=== PATIENT | female | born 1945 | race Caucasian/White ===

== ENCOUNTER 2022-01-24 14:50 | Inpatient (IN) | payer MEDICARE, OTHER ==
[~2022-01-24] VITALS: Ht 160 cm; Wt 46.3 kg
[~2022-01-24 14:50] MED LIST: AMOXICILLIN 8751 TAB PO; ASPIRIN 81M81 MG/TA2 PO; AVELOX 400MG T400 MG PO; BACTRIM DS 8001 TAB PO; LIDO3%CREAM TP; LIDOCAINE HC20 MG/M2 TOP; NICODERM C21 MG/PATC TD; PLAVIX 75MG TAB75 MG PO; PROVENTIL0.09 MG/A1 IH; ULTRAM 50MG TAB50 MG PO
[2022-01-24 15:30] VITALS: BP 122/60; PULSE 85; TEMP 97.7
[2022-01-24 16:35] LABS: BASO # 0.1 K/mm3 (0.0-0.2); BASO % 0.6 % (0.0-2.0); EOS # 0.3 K/mm3 (0.0-0.7); GRAN # 8.1 K/mm3 (1.4-6.5); LYMPH # 1.5 K/mm3 (1.2-3.4); MEAN CELL VOLUME 85 fl (80.0-100.0); MEAN CORPUSCULAR HGB CONC 31 g/dl (33.0-37.0); MEAN PLATELET VOLUME 8.2 fl (7.4-10.4); MONO # 0.9 K/mm3 (0.1-0.6); MONO % 7.9 % (1.7-9.3); PLATELET COUNT 612 K/mm3 (130-400); RED BLOOD COUNT 3.42 M/mm3 (4.10-5.30); REDCELL DISTRIBUTION WIDTH-CV 14.9 % (11.5-14.5)
[2022-01-24 16:47] LABS: ALBUMIN 2.9 gm/dL (3.4-4.8); BILIRUBIN,TOTAL 0.3 mg/dL (0.2-1.2); CREATININE, serum 0.89 mg/dL (0.57-1.11); POTASSIUM 4.8 mmol/L (3.5-4.5); TOTAL PROTEIN 7.1 gm/dL (6.2-8.1)
[2022-01-24 16:55] LABS: HEMATOCRIT 29.1 % (37.0-47.0); HEMOGLOBIN 9.1 g/dl (12.5-16.0); MEAN CORPUSCULAR HEMOGLOBIN 27 pg (27-31)
[2022-01-24 20:47] VITALS: BP 130/55; PULSE 95; TEMP 97.6
[2022-01-25 00:13] VITALS: BP 142/55; PULSE 90; TEMP 97.3
[2022-01-25 04:16] VITALS: BP 128/52; PULSE 103; TEMP 98.1
[2022-01-25 06:24] LABS: BASO # 0.1 K/mm3 (0.0-0.2); BASO % 0.7 % (0.0-2.0); EOS # 0.3 K/mm3 (0.0-0.7); EOS % 2.8 % (0.0-4.0); GRAN # 6.8 K/mm3 (1.4-6.5); GRAN % 75.4 % (42.2-75.2); LYMPH # 1.1 K/mm3 (1.2-3.4); LYMPH % 12.2 % (20.0-51.0); MEAN CELL VOLUME 86 fl (80.0-100.0); MEAN CORPUSCULAR HGB CONC 31 g/dl (33.0-37.0); MEAN PLATELET VOLUME 8.4 fl (7.4-10.4); MONO # 0.8 K/mm3 (0.1-0.6); MONO % 8.6 % (1.7-9.3); RED BLOOD COUNT 3.32 M/mm3 (4.10-5.30); REDCELL DISTRIBUTION WIDTH-CV 14.8 % (11.5-14.5)
--- NOTE | 2022-01-25 06:25 | NUR ---
dressing to rt leg changed per pt request x1 this shift, site with yellow-green, foul smelling drainage, green mesh stuck inside incision left in place, covered area with wet to dry dressings and rudy wrap, po norco controlling pain, up with assist of 2 to bsc. no IV access, PICC ordered for this am.
[2022-01-25 06:35] LABS: CALCIUM 8.9 mg/dL (8.4-10.2); CREATININE, serum 0.69 mg/dL (0.57-1.11)
[2022-01-25 06:54] LABS: HEMATOCRIT 28.4 % (37.0-47.0); HEMOGLOBIN 8.7 g/dl (12.5-16.0); MEAN CORPUSCULAR HEMOGLOBIN 26 pg (27-31)
[2022-01-25 06:55] LABS: PLATELET COUNT 500 K/mm3 (130-400)
[2022-01-25 08:18] VITALS: BP 157/76; PULSE 72; TEMP 98
--- NOTE | 2022-01-25 10:31 | NUR ---
Initial visit; Nurse asked if I was going in to see Lyly, that she was experiencing sadness, anxiety and depression regarding her upcoming surgical procedure. Aircraft Refueller found Lyly near tears but receptive to prayer. Aircraft Refueller offered comfort and prayer inviting patient to talk. Lyly said she didn't want to talk but was receptive to prayer and being placed on Aircraft Refueller's prayer list. Aircraft Refueller will follow up.
--- NOTE | 2022-01-25 10:55 | NUR ---
The patient recently discharged from the hospital on 12/31. The plan was to go to [facility] for SNF, but the patient's family took her to [facility] instead. The patient has been at [facility] since then. KAR contacted the patient's daughter, Ade (ph#[phone]), to discuss discharge plan. The patient is to have an above the knee amputation tomorrow. Ade states that the plan is for the patient to return back to [facility] upon discharge and family will transport. The patient's PCP is Dr. Aamir Marino. The patient does not have a DPOA-HC in EMR, but Ade states she believes the patient has one completed. The patient's is Issac (ph#[phone]). KAR contacted and faxed updates to Jenni at [facility]. Jenni confirms that they plan on taking the patient back upon discharge. *Discharge plan: [facility]* [facility]: #[phone], fax#[phone]
[2022-01-25 12:09] VITALS: BP 129/59; PULSE 100; TEMP 97.7
--- NOTE | 2022-01-25 12:44 | NUR ---
PATIENT ALERT AND ORIENTED X4. VSS. PATIENT HERE FOR DEHISENCE OF RIGHT BKA. PATIENT AFFECT IS FLAT. PICC PLACEMENT TODAY TO RIGHT UPPER ARM. PATIENT REPORTS PAIN 01/26, REQUESTS PAIN MEDICATION. CONSENT OBTAINED FOR RIGHT AKA ON 01/26. PATIENT RESTING IN BED WITH CALL LIGHT NEAR.
[2022-01-25 14:55] LABS: COLLECTION METHOD CLEAN CATCH; MUCOUS Present (NOT PRESENT); PH 6 (5-8); SQUAMOUS EPITHELIAL 0-2 /hpf (0-10); URINE APPEARANCE Clear (CLEAR/HAZY); URINE BACTERIA None Seen /hpf (NONE SEEN); URINE BLOOD Negative (NEGATIVE); URINE COLOR Yellow (YELLOW); URINE GLUCOSE Negative (NEGATIVE); URINE KETONE Negative (NEGATIVE); URINE NITRATE Negative (NEGATIVE); URINE PROTEIN(semi-quant) 1+ (NEGATIVE); URINE RBC 0-2 /hpf (0-2); URINE UROBILINOGEN Negative (NEGATIVE)
[2022-01-25 16:02] VITALS: BP 96/74; PULSE 101; TEMP 98.5
[2022-01-25 20:34] VITALS: BP 126/52; PULSE 94; TEMP 98.2
[2022-01-26] VITALS (14 sets, daily range): BP systolic 92–138; BP diastolic 34–53; PULSE 88–110; TEMP 97.6–98.2
--- NOTE | 2022-01-26 05:53 | NUR ---
pt had some episodes of confusion this shift, kept asking if her was here, even after she was told several times he had left for the day, pt up to bsc with assist of 2, pain controlled with tylenol and norco, dressing intact to rt leg stump, did not want changed tonight, npo since midnight for surgery today. back and forth from bed to chair with assist of 2.
[2022-01-26 06:25] LABS: BASO % 0.4 % (0.0-2.0); EOS # 0.1 K/mm3 (0.0-0.7); EOS % 0.9 % (0.0-4.0); GRAN # 8.2 K/mm3 (1.4-6.5); LYMPH % 10.3 % (20.0-51.0); MEAN CELL VOLUME 84 fl (80.0-100.0); MEAN CORPUSCULAR HGB CONC 32 g/dl (33.0-37.0); MEAN PLATELET VOLUME 8.3 fl (7.4-10.4); MONO # 0.6 K/mm3 (0.1-0.6); MONO % 5.9 % (1.7-9.3); PLATELET COUNT 493 K/mm3 (130-400); RED BLOOD COUNT 3.23 M/mm3 (4.10-5.30); REDCELL DISTRIBUTION WIDTH-CV 14.6 % (11.5-14.5)
[2022-01-26 06:32] LABS: HEMOGLOBIN 8.5 g/dl (12.5-16.0); MEAN CORPUSCULAR HEMOGLOBIN 26 pg (27-31)
[2022-01-26 06:39] LABS: CALCIUM 8.8 mg/dL (8.4-10.2); CREATININE, serum 0.67 mg/dL (0.57-1.11); POTASSIUM 4.8 mmol/L (3.5-4.5)
--- NOTE | 2022-01-26 13:32 | NUR ---
PATIENT OFF OF FLOOR FOR SURGERY
--- NOTE | 2022-01-26 15:54 | NUR ---
The patient had surgery today for the AKA. KAR faxed updates to [facility].
[2022-01-27 04:05] VITALS: BP 87/40; PULSE 97; TEMP 98.2
[2022-01-27 06:40] LABS: CALCIUM 8.4 mg/dL (8.4-10.2); CREATININE, serum 0.72 mg/dL (0.57-1.11)
[2022-01-27 07:11] LABS: MEAN CELL VOLUME 83 fl (80.0-100.0); MEAN CORPUSCULAR HGB CONC 32 g/dl (33.0-37.0); MEAN PLATELET VOLUME 8.3 fl (7.4-10.4); PLATELET COUNT 463 K/mm3 (130-400); RED BLOOD COUNT 2.88 M/mm3 (4.10-5.30); REDCELL DISTRIBUTION WIDTH-CV 14.8 % (11.5-14.5)
[2022-01-27 07:12] LABS: HEMOGLOBIN 7.7 g/dl (12.5-16.0); MEAN CORPUSCULAR HEMOGLOBIN 27 pg (27-31)
[2022-01-27 07:28] LABS: LYMPHOCYTE 5 % (20.0-51.0); NEUTROPHILS 95 % (42.0-75.2); OVALOCYTES 1+; PLATELET ESTIMATE INCREASED (NORMAL)
[2022-01-27 07:29] LABS: ANISOCYTOSIS 1+; HYPOCHROMIA 1+
[2022-01-27 07:45] VITALS: BP 131/42; PULSE 82; TEMP 98.1
--- NOTE | 2022-01-27 08:00 | NUR ---
Patient sitting up in the recliner, family at the bedside. A&Ox4. VSS. IV CDI, fluids infusing. Denies pain and discomfort. LF incision site CDI. Call light within reach. Chair alarm on
[2022-01-27 11:16] VITALS: BP 94/76; PULSE 93; TEMP 98.1
--- NOTE | 2022-01-27 13:19 | NUR ---
Latoya: unknown Situation: Sales Branch Manager stopped by room on rounds Background: Pt was content and watching tv Assessment: Pt appreciated visit Recommendation: Sales Branch Manager will follow up as needed
--- NOTE | 2022-01-27 14:41 | NUR ---
Tentative discharge tomorrow, 01/28. KAR notified and faxed updates to Jenni at [facility]. Jenni confirms that they are able to accept the patient back tomorrow. KAR met with the patient and her to update. They are in agreement to the plan and confirm they will transport the patient back to [facility]. KAR presented and read the IM form outloud to the patient. The patient verbalized understanding and signed the form. KAR provided her with a copy.
[2022-01-27 16:08] VITALS: BP 108/32; PULSE 90; TEMP 98.3
--- NOTE | 2022-01-27 18:52 | NUR ---
Patient sitting up in bed, A&Ox4. VSS. IV CDI. Pain medication requested, reporting pain 11/26 RT leg. RT leg incision CDI. No further needs expressed. Call light within reach
--- NOTE | 2022-01-27 19:00 | NUR ---
RECEIVED CHANGE OF SHIFT REPORT FROM DAY SHIFT RN.
[2022-01-27 19:02] VITALS: BP 117/38; PULSE 88; TEMP 97.7
[2022-01-27 23:45] VITALS: BP 125/55; PULSE 86; TEMP 97.6
[2022-01-28 03:10] VITALS: BP 128/52; PULSE 80; TEMP 97.9
--- NOTE | 2022-01-28 04:10 | NUR ---
PATIENT REPORTS "I'M BLEEDING". OBSERVED MODERATE SIZE OPEN BLEEDING SHALLOW SKIN WOUND, NO SKIN FLAP OBSERVED. AREA CLEANED WITH BETADINE, COVERED WITH 4X4 TEGADERM DRESSING. NO REDNESS TO SKIN EDGES.
[2022-01-28 06:13] LABS: BASO % 0.2 % (0.0-2.0); EOS # 0.1 K/mm3 (0.0-0.7); EOS % 0.9 % (0.0-4.0); GRAN # 9.5 K/mm3 (1.4-6.5); GRAN % 79.9 % (42.2-75.2); LYMPH # 1.1 K/mm3 (1.2-3.4); LYMPH % 9.6 % (20.0-51.0); MEAN CELL VOLUME 83 fl (80.0-100.0); MEAN CORPUSCULAR HGB CONC 32 g/dl (33.0-37.0); MEAN PLATELET VOLUME 8.3 fl (7.4-10.4); MONO # 1.1 K/mm3 (0.1-0.6); PLATELET COUNT 508 K/mm3 (130-400); REDCELL DISTRIBUTION WIDTH-CV 14.7 % (11.5-14.5)
[2022-01-28 06:20] LABS: HEMATOCRIT 26.5 % (37.0-47.0); HEMOGLOBIN 8.4 g/dl (12.5-16.0); MEAN CORPUSCULAR HEMOGLOBIN 26 pg (27-31)
[2022-01-28 06:28] LABS: CALCIUM 8.4 mg/dL (8.4-10.2); CREATININE, serum 0.57 mg/dL (0.57-1.11); POTASSIUM 4.7 mmol/L (3.5-4.5)
--- NOTE | 2022-01-28 06:59 | NUR ---
CHANGE OF SHIFT REPORT GIVEN TO DAY SHIFT RNFLOR.
[2022-01-28 07:25] VITALS: BP 120/49; PULSE 81; TEMP 98
--- NOTE | 2022-01-28 08:00 | NUR ---
Patient sitting up in the recliner, nurse provided warm blankets. A&Ox3. VSS. IV CDI. Reports pain in left leg, pain medication given by prior nurse. LF leg incision CDI. Independent with feeds. No further needs expressed. Call light within reach
[2022-01-28] MEDS ORDERED: NORCO 325 MG-51 TAB PO (09:35)
--- NOTE | 2022-01-28 10:31 | NUR ---
Report called to [facility]
--- NOTE | 2022-01-28 11:10 | NUR ---
Nurse assisted with getting the patient dressed and into the wheelchair. Discharge paperwork with the patient and . Personal belongings with the . No further needs expressed.
--- NOTE | 2022-01-28 14:06 | NUR ---
[employer] Rep[employer]r attended clinical rounds with the team and patient to discharge to [facility] today. KAR met with patient and her son who plans to provide transportation. Plan will be to leave between 1100 and 1130. KAR contacted Shannon at [facility] to provide tentative transport time. RN report phone number provided. KAR Balderas arranged Dr to Dr call. KAR faxed discharge orders and negative covid results.
== END 2022-01-28 11:15 | DRG 856 ==
LOC: SURG 14:50
PROVIDERS: Orthopaedic Surgery; Physician Assistant; ADMIT Student in an Organized Health Care Education/Training Program
PROC: 02HV33Z Insertion of Infusion Device into Superior Vena Cava, Percutaneous Approach (ICD-10-PCS; 2022-01-25)
PROC: 0Y6C0Z1 Detachment at Right Upper Leg, High, Open Approach (ICD-10-PCS; principal; 2022-01-26 14:45)
DX: T81.49XA Infection following a procedure, other surgical site, initial encounter (principal); E43 Unspecified severe protein-calorie malnutrition; E87.1 Hypo-osmolality and hyponatremia; E87.2 Acidosis; I70.261 Atherosclerosis of native arteries of extremities with gangrene, right leg; T87.81 Dehiscence of amputation stump; F17.210 Nicotine dependence, cigarettes, uncomplicated; Z20.822 Contact with and (suspected) exposure to COVID-19; J44.9 Chronic obstructive pulmonary disease, unspecified; D75.839 Thrombocytosis, unspecified; D64.9 Anemia, unspecified; E87.5 Hyperkalemia; Z96.651 Presence of right artificial knee joint; Y83.5 Amputation of limb(s) as the cause of abnormal reaction of the patient, or of later complication, without mention of misadventure at the time of the procedure; Y92.89 Other specified places as the place of occurrence of the external cause; Z79.82 Long term (current) use of aspirin; Z86.73 Personal history of transient ischemic attack (TIA), and cerebral infarction without residual deficits
CPT/HCPCS: C1751; J0690; J1100; J2250; J2270; J2405; J2704; J3010; J7030